=== PATIENT | male | born 1955 | race Caucasian/White ===

== ENCOUNTER → 2016-04-24 | Outpatient (CLI) | payer OTHER ==
[~2016-04-24] MED LIST: IOPAMIDOL (ISOVUE-300) 100 ML BTL IV ONE
== END ==
LOC: CIMAGING 15:21
PROVIDERS: ATTEND Otolaryngology
DX: R22.1 Localized swelling, mass and lump, neck (principal)
CPT/HCPCS: 70491-PO; 71260-PO; Q9967

== ENCOUNTER 2016-05-08 07:25 | Day surgery (SDC) | payer OTHER ==
[2016-05-08] MEDS ORDERED: NS 1,000 ML IV SCH (07:45)
[2016-05-08] MEDS ORDERED: FLUMAZENIL 0.5 MG/5 ML MDV IVP ONE (08:26)
[2016-05-08] MEDS ORDERED: ONDANSETRON 4 MG/2 ML VIAL ONE (08:26)
[2016-05-08] MEDS ORDERED: NALOXONE HCL 0.4 MG/ML INJ ONE (08:27)
[2016-05-08] MEDS ORDERED: fentaNYL 100 MCG/2 ML INJ ONE ×2 (08:27→09:15)
[2016-05-08] MEDS ORDERED: MIDAZOLAM 2 MG/2 ML VIAL ONE (08:27)
[2016-05-08] MEDS ORDERED: LIDOCAINE 2% JELLY 20 ML (UROJECT) ONE (09:01)
[2016-05-08] MEDS ORDERED: GLUCAGON,HUMAN RECOMBINANT 1 MG VIAL ONE (09:03)
[2016-05-08] MEDS ORDERED: LIDOCAINE 1% 30 ML SDV ONE (09:18)
== END 2016-05-08 10:40 | disposition home or self-care (01) ==
LOC: FIMAGING 07:25
PROVIDERS: ATTEND Internal Medicine Hematology & Oncology
PROC: 0DH63UZ Insertion of Feeding Device into Stomach, Percutaneous Approach (ICD-10-PCS; principal; 2016-05-08 09:42)
DX: C09.9 Malignant neoplasm of tonsil, unspecified (principal); Z87.891 Personal history of nicotine dependence; Z98.84 Bariatric surgery status
CPT/HCPCS: 49440; C1729; C1769; J1610; J2250; J2310; J2405; J3010

== ENCOUNTER → 2016-08-15 | Outpatient (CLI) | payer OTHER | LOC: FIMAGING 08:02 | PROVIDERS: ATTEND Internal Medicine Hematology & Oncology | PROC: 0DP6XUZ Removal of Feeding Device from Stomach, External Approach (ICD-10-PCS; principal; 2016-08-15) | DX: Z43.1 Encounter for attention to gastrostomy (principal); C09.9 Malignant neoplasm of tonsil, unspecified; Z92.3 Personal history of irradiation ==

== ENCOUNTER → 2018-06-17 | Outpatient (CLI) | payer OTHER ==
[~2018-06-17] MED LIST changes: -IOPAMIDOL (ISOVUE-300) 100 ML BTL IV ONE; +IOPAMIDOL (ISOVUE-300) 100 ML BTL ONE
== END ==
LOC: FIMAGING 08:26
PROVIDERS: ATTEND Otolaryngology
DX: C09.9 Malignant neoplasm of tonsil, unspecified (principal); R59.0 Localized enlarged lymph nodes
CPT/HCPCS: Q9967